=== PATIENT | female | born 1990 | race Caucasian/White ===

== ENCOUNTER 2021-06-30 06:10 | Inpatient (IN) | payer OTHER ==
[2021-06-30] MEDS ORDERED: CARBOPROST TROMETHAMINE 250 MCG/ML 1 ML AMP IM PRN (06:22)
[2021-06-30] MEDS ORDERED: LIDOCAINE 0.5% (PF) 5 MG/ML (50 ML SDV) SQ PRN (06:22)
[2021-06-30] MEDS ORDERED: OXYTOCIN 10 UNIT/ML 1 ML VIAL IM PRN (06:22)
[2021-06-30] MEDS ORDERED: TERBUTALINE 1 MG/ML VIAL SQ PRN (06:22)
[2021-06-30] MEDS ORDERED: METHYLERGONOVINE 0.2 MG/ML 1 ML AMP IM PRN (06:22)
[2021-06-30] MEDS ORDERED: OXYTOCIN 30 UNITS/500 ML NS 30 UNIT in SALINE 1 500ML.BAG IV SCH ×2 (06:30→15:15)
[2021-06-30] MEDS: LACTATED RINGERS 1,000 ML IV SCH (06:34)
[2021-06-30 06:54] LABS: Basophils % (A) 0 %; Eosinophils # (A) 0.3 k/uL (0-0.7); Eosinophils % (A) 2 %; HCT 32.5 % (34.0-46.0); HGB 10.7 gm/dL (11.4-16.0); Lymphocytes # (A) 1.3 k/uL (1.0-4.8); Lymphocytes % (A) 11 %; MCH 30.5 pg (25.0-35.0); MCV 92.3 fL (80.0-100.0); Mean Platelet Volume 8.9; Monocytes # (A) 0.5 k/uL (0-1.0); Monocytes % (A) 4 %; Neutrophils # (A) 9.4 k/uL (1.3-7.7); Neutrophils % (A) 81 %; Platelet Count 298 k/uL (150-450); RBC 3.52 m/uL (3.80-5.40); RDW 13.4 % (11.5-15.5); WBC 11.6 k/uL (3.8-10.6)
--- NOTE | 2021-06-30 08:20 | P.HPOB ---
History of Present Illness H&P Date: 06/30/21 Chief Complaint: Cholestasis of This is a 31 year old 1 para 0 woman with an estimated due date of 07/18/2021 based on first trimester ultrasound. She is admitted at 37-3/7 weeks gestation after diagnosis of cholestasis of . She began having itching of the palms and soles of the feet proximally 6 days ago. Fasting bile acids were drawn and resulted yesterday. They were elevated at 44. She also has progressively been developing lower extremity edema and had 1+ protein in her urine. Her blood pressures have remained normal. Based on the diagnosis of placed is and worsening lower extremity edema and mild proteinuria, the decision was made for induction of labor. has been otherwise uncomplicated. She had an estimated weight in the 94th percentile at a 32 week ultrasound. Laboratory data: Blood type A+, antibody screen negative, rubella immune, VDRL nonreactive, hep Veronica surface antigen negative, HIV negative, gonorrhea and clinic cultures negative, group B strep negative Review of Systems All systems: negative Past Medical History Past Medical History: No Reported History History of Any Multi-Drug Resistant Organisms: None Reported Past Surgical History: No Surgical Hx Reported Past Anesthesia/Blood Transfusion Reactions: No Reported Reaction Past Psychological History: No Psychological Hx Reported Smoking Status: Never smoker Past Drug Use History: None Reported Medications and Allergies Home Medications Medication Instructions Recorded Confirmed Type Pnv No.95/Ferrous Fum/Folic AC 1 tab PO DAILY 06/30/21 06/30/21 History [ Multivitamin Tablet] Allergies Allergy/AdvReac Type Severity Reaction Status Date / Time No Known Allergies Allergy Verified 06/30/21 06:21 Exam Vital Signs Temp Pulse Resp BP Pulse Ox 06/30/21 06:21 98.1 F 144 H 18 158/80 100 Intake and Output 06/29/21 06/30/21 06/30/21 22:59 06:59 14:59 Other: Weight 77.111 kg This is a pleasant, visibly gravid female in no acute distress. Targeted physical exam is performed. The abdomen is gravid with a fundal height of 37-38 cm. Estimated weight 7-8 pounds. She has 2+ bilateral lower extremity edema, 2+ deep tendon reflexes and no clonus. On cervical exam the cervix is 3-4 cm dilated, 70% effaced and the vertex is in the -2 station. Artificial rupture of membranes is undertaken and clear fluid is noted. heart tones are category 1 and she is irregularly ed Results Result Diagrams: 06/30/21 06:30 Abnormal Lab Results - Last 24 Hours (Table) 06/30/21 Range/Units 06:30 WBC 11.6 H (3.8-10.6) k/uL RBC 3.52 L (3.80-5.40) m/uL Hgb 10.7 L (11.4-16.0) gm/dL Hct 32.5 L (34.0-46.0) % Neutrophils # 9.4 H (1.3-7.7) k/uL Assessment and Plan (1) Cholestasis of Current Visit: Yes Status: Acute Code(s): O26.619 - LIVER AND BILIARY TRACT DISORD IN , UNSP TRIMESTER; K83.1 - OBSTRUCTION OF BILE DUCT SNOMED C ode(s): 623986146 (2) Edema of lower extremity in third trimester, antepartum Current Visit: Yes Status: Acute Code(s): O12.03 - GESTATIONAL EDEMA, THIRD TRIMESTER SNOMED Code(s): 180086729 Plan: 31-year-old 1 at 37-3/7 weeks gestation admitted for induction of labor secondary to cholestasis of and worsening lower extremity edema. status is currently reassuring by external monitoring. Pitocin induction of labor has been initiated per protocol. She is group B strep negative and Rh+. I anticipate normal spontaneous vaginal delivery.
[2021-06-30] MEDS ORDERED: ROPIVACAINE 100 MG, fentaNYL (PF). 200 MCG in SODIUM CHLORIDE 0.9% 76 ML EPIDURAL ONE (14:02)
--- NOTE | 2021-06-30 15:05 | P.PROBDLV ---
Vaginal Delivery Note - . Vaginal Delivery Note: findings: Male infant in the left occiput anterior position with Apgars of 9 at 1 minute and 9 at 5 minutes weighing 6 lbs. 8 oz., 2950 g. Second-degree perineal laceration. Intact, three-vessel cord placenta. EBL approximately 250 mL's. Delivery summary: This is a 30-year-old 1 para 0 woman who is admitted at 37-3/7 weeks gestation for induction of labor secondary to recent diagnosis of cholestasis of as well as increased lower extremity swelling and mild proteinuria in the office setting. Following admission she underwent a Pitocin induction of labor with artificial rupture of membranes. Clear fluid was noted. She progressed steadily on and without complications to the first stage of labor. She did receive an epidural anesthetic at approximate 7 cm dilated. She reached complete cervical dilation with category 1 heart tones. She commenced pushing with excellent maternal effort. With she was repositioned, prepped and draped in the dorsal modified Fabio position. With additional maternal effort the head did deliver from the left occiput anterior position. The nose and mouth were bulb suctioned. An uncontrolled fashion the anterior followed by the posterior shoulders were delivered and the rest the infant was delivered onto the field. The nose and mouth were further bulb suctioned and replace the infant was placed on the maternal abdomen. After delay the cord was clamped and cut. The perineum was infused with lidocaine and further inspected. Second-degree laceration was confirmed. This was closed with 3-0 Vicryl suture in the usual fashion. The placenta was then expressed after approximately 10 minute third stage of labor. The uterus was massaged and was noted to be firm below the level of the umbilicus. The bladder was drained for approximately 100 mL of clear urine. The vagina and cervix are reinspected and no further bleeding or lacerations were noted. All counts were correct. Patient received Pitocin following the third stage of labor. Both mother and were doing well post delivery in the room.
[2021-06-30] MEDS ORDERED: SIMETHICONE 80 MG CHEWABLE PO PRN (15:06)
[2021-06-30] MEDS ORDERED: IBUPROFEN 600 MG TAB PO PRN (15:06)
[2021-06-30] MEDS ORDERED: diphenhydrAMINE 50 MG CAP PO PRN (15:06)
[2021-06-30] MEDS ORDERED: ACETAMINOPHEN TAB 325 MG TAB PO PRN (15:06)
[2021-06-30] MEDS ORDERED: LANOLIN CREAM 5 GM TUBE TOPICAL PRN (15:06)
[2021-06-30] MEDS ORDERED: diphenhydrAMINE 25 MG CAP PO PRN (15:06)
[2021-06-30] MEDS ORDERED: BENZOCAINE/MENTHOL SPRAY 1 GM/SPRAY AEROSOL TOPICAL PRN (15:06)
[2021-06-30] MEDS ORDERED: HYDROCORTISONE 2.5% RECTAL CREAM 30 GM TUBE RECTAL PRN (15:06)
[2021-06-30] MEDS ORDERED: diphenhydrAMINE 50 MG/ML 1 ML VIAL IVP PRN ×2 (15:06)
[2021-06-30] MEDS ORDERED: ZOLPIDEM 5 MG TAB PO PRN (15:06)
[2021-06-30] MEDS: SENNOSIDES-DOCUSATE SODIUM 1 EACH TAB PO SCH (19:50)
[2021-07-01] MEDS: LACTATED RINGERS 1,000 ML IV SCH (07:18)
[2021-07-01] MEDS: SENNOSIDES-DOCUSATE SODIUM 1 EACH TAB PO SCH (07:25)
[2021-07-01 07:32] LABS: Basophils # (A) 0.1 k/uL (0-0.2); Basophils % (A) 0 %; Eosinophils % (A) 0 %; HCT 28.7 % (34.0-46.0); HGB 9.6 gm/dL (11.4-16.0); Lymphocytes # (A) 1.7 k/uL (1.0-4.8); Lymphocytes % (A) 9 %; MCH 30.8 pg (25.0-35.0); MCHC 33.4 g/dL (31.0-37.0); MCV 92.2 fL (80.0-100.0); Mean Platelet Volume 8.8; Monocytes # (A) 0.7 k/uL (0-1.0); Monocytes % (A) 4 %; Neutrophils # (A) 15.9 k/uL (1.3-7.7); Neutrophils % (A) 86 %; Platelet Count 265 k/uL (150-450); RBC 3.11 m/uL (3.80-5.40); RDW 13.4 % (11.5-15.5); WBC 18.6 k/uL (3.8-10.6)
[2021-07-01 07:48] VITALS: BP 121/82; PULSE 88; RESP 18; TEMP 98.3
--- NOTE | 2021-07-01 10:03 | P.DS ---
Providers Date of admission: 06/30/21 06:10 Expected date of discharge: 07/01/21 Attending physician: Tracey Matias Primary care physician: Stated None - Discharge Diagnosis(es) (1) Cholestasis of Current Visit: Yes Status: Acute (2) Edema of lower extremity in third trimester, antepartum Current Visit: Yes Status: Acute (3) Normal spontaneous vaginal delivery Current Visit: Yes Status: Acute (4) Perineal laceration with delivery, second degree Current Visit: Yes Status: Acute Hospital Course: this is a 31-year-old 1 now para 1 woman who is admitted at 37-3/7 weeks gestation for induction of labor secondary to diagnosis of cholestasis of . She also developed some worsening lower extremity edema and mild proteinuria. Her blood pressures were normal. Following admission she underwent a Pitocin induction of labor with artificial rupture of membranes. She entered active labor and did receive an epidural anesthetic. She had a rather rapid and unremarkable first stage of labor with category 1 heart tones. She went on to deliver a liveborn male infant over second-degree perineal laceration Apgars were 9 at 1 minute and 9 at 5 minutes and weight was 6 lbs. 8 oz. Please see the delivery summary for details. The patient's course was unremarkable. By the morning of day #1 she was ambulating and voiding without difficulty. Her lochia was moderate. She was breast-feeding successfully. The was circumcised. Her vital signs are stable. She was therefore deemed stable for discharge home at 24 hours postdelivery with routine instructions for care and follow-up. Procedures: epidural anesthetic Normal spontaneous vaginal delivery Repair of second-degree perineal laceration Patient Condition at Discharge: Good Plan - Discharge Summary New Discharge Prescriptions: No Action Pnv No.95/Ferrous Fum/Folic AC [ Multivitamin Tablet] 1 tab PO DAILY Discharge Medication List Pnv No.95/Ferrous Fum/Folic AC [ Multivitamin Tablet] 1 tab PO DAILY 06/30/21 [History] Follow up Appointment(s)/Referral(s): Tracey Matias MD [STAFF PHYSICIAN] - 6 Weeks Activity/Diet/Wound Care/Special Instructions: Follow-up in the office in 6 weeks . Call with any concerning signs or symptoms including heavy vaginal bleeding, severe abdominal pain, fever greater than 101, swelling or redness of the lower extremities, foul vaginal discharge, or signs of depression. Nothing in the vagina for 6 weeks after delivery, specifically no intercourse.May use [id number] ibuprofen and/or Tylenol extra strength as needed for pain. Discharge Disposition: HOME SELF-CARE
== END 2021-07-01 17:46 | disposition home or self-care (01) | DRG 805 ==
LOC: 4FBP 06:10
PROVIDERS: ADMIT Obstetrics & Gynecology; ATTEND Obstetrics & Gynecology
PROC: 10E0XZZ Delivery of Products of Conception, External Approach (ICD-10-PCS; principal; 2021-06-30)
PROC: 0KQM0ZZ Repair Perineum Muscle, Open Approach (ICD-10-PCS; 2021-06-30)
PROC: 10907ZC Drainage of Amniotic Fluid, Therapeutic from Products of Conception, Via Natural or Artificial Opening (ICD-10-PCS; 2021-06-30)
PROC: 3E033VJ Introduction of Other Hormone into Peripheral Vein, Percutaneous Approach (ICD-10-PCS; 2021-06-30)
PROC: 4A0HX4Z Measurement of Products of Conception, Cardiac Electrical Activity, External Approach (ICD-10-PCS; 2021-06-30)
DX: O26.62 Liver and biliary tract disorders in childbirth (principal); K83.1 Obstruction of bile duct; Z37.0 Single live birth; O70.1 Second degree perineal laceration during delivery; O12.14 Gestational proteinuria, complicating childbirth; Z3A.37 37 weeks gestation of pregnancy
CPT/HCPCS: 85025; 86850; 86900; 86901

== ENCOUNTER → 2022-12-13 | Outpatient (CLI) | payer OTHER ==
[2022-12-14 01:21] LABS: Basophils # (A) 0.03 X 10*3/uL (0.00-0.10); Basophils % (A) 0.4 %; Eosinophils # (A) 0.02 X 10*3/uL (0.04-0.35); Eosinophils % (A) 0.2 %; HCT 36.1 % (37.2-46.3); HGB 12.4 g/dL (12.0-15.0); Immature Grans, Automated 0.1 %; Lymphocytes # (A) 1.48 X 10*3/uL (0.90-5.00); Lymphocytes % (A) 17.9 %; MCH 31.8 pg (27.0-32.0); MCHC 34.3 g/dL (32.0-37.0); MCV 92.6 fL (80.0-97.0); Mean Platelet Volume 11.4 fL (9.5-12.2); Monocytes # (A) 0.48 X 10*3/uL (0.20-1.00); Monocytes % (A) 5.8 %; NRBC Per 100 WBC 0 /100 WBCS (0.0-0.0); Neutrophils # (A) 6.25 X 10*3/uL (1.80-7.70); Neutrophils % (A) 75.6 %; Platelet Count 247 X 10*3/uL (140-440); RDW 12.3 % (11.5-14.5); WBC 8.27 X 10*3/uL (4.50-10.00)
== END | disposition home or self-care (01) ==
LOC: LABPAT 13:40
PROVIDERS: ATTEND Obstetrics & Gynecology
DX: Z01.812 Encounter for preprocedural laboratory examination (principal); O02.1 Missed abortion; Z3A.00 Weeks of gestation of pregnancy not specified
CPT/HCPCS: 85025

== ENCOUNTER 2022-12-15 06:22 | Day surgery (SDC) | payer OTHER ==
[2022-12-13 16:00] VITALS: BMI 22.3
[~2022-12-15 06:22] MED LIST: DEXAMETHASONE SOD PHOSPHATE 4 MG/ML 1 ML VIAL IV ONE; LACTATED RINGERS 1,000 ML IV SCH; MIDAZOLAM 2 MG/2 ML VIAL IV PRN; ONDANSETRON 4 MG/2 ML VIAL IVP ONE; Pre Op ABX Message 1 EACH MISC MISCELLANE ONE; SCOPOLAMINE 1 MG/72 HR PATCH TRANSDERM ONE
[2022-12-15] MEDS ORDERED: HYDROmorphone 0.5 MG/0.5 ML SYRINGE IVP PRN (07:00)
[2022-12-15] MEDS ORDERED: fentaNYL (PF) 50 MCG/ML 2 ML AMP ONE (07:25)
[2022-12-15] MEDS ORDERED: LIDOCAINE 2% INJ 20 MG/ML (2 ML VIAL) ONE (07:25)
[2022-12-15] MEDS ORDERED: MIDAZOLAM 2 MG/2 ML VIAL ONE (07:25)
[2022-12-15] MEDS ORDERED: PROPOFOL 10 MG/ML 20 ML VIAL IV ONE (07:25)
[2022-12-15] MEDS ORDERED: KETOROLAC 15 MG/ML 1 ML VIAL ONE (07:25)
[2022-12-15] MEDS ORDERED: LIDOCAINE 0.5%-EPI 1:200,000 50 ML VIAL SQ ONE (07:30)
[2022-12-15 08:15] VITALS: TEMP 97
--- NOTE | 2022-12-15 08:15 | P.OP ---
Date of Procedure: 12/15/22 Preoperative Diagnosis: Missed Postoperative Diagnosis: Same Procedure(s) Performed: Suction dilation and curettage Anesthesia: JOSESITO Surgeon: Tracey Matias Estimated Blood Loss (ml): 100 IV fluids (ml): 300 Urine output (ml): 25 Pathology: other (Products of conception) Condition: stable Disposition: PACU Indications for Procedure: 32-year-old 2 para 1 at approximately 10 weeks' gestation by LMP who is found to have a 9 week gestational sac and pole with no heart tones on ultrasound Operative Findings: N to 12 weeks size uterus preprocedure with appropriate products of conception retrieved Description of Procedure: After the patient and her partner were met in the preoperative holding area and all questions were answered, she was taken to the operating room where anesthetic was administered without incident. She was in positioned, prepped and draped in the dorsal high lithotomy position. Exam under anesthetic was undertaken. The bladder was drained for approximately 25 mL of clear urine. The weighted speculum was placed in the vagina and a single-toothed tach tenaculum was used to grasp the cervix anteriorly. A paracervical block with half percent lidocaine plus epinephrine was placed. The uterus was sounded to 14 cm. The cervix and sequentially dilated with Hegar dilators to 12-Paraguayan. The 10-Paraguayan curved suction curette was then introduced and the uterine cavity was circumferentially suction curettaged with appropriate amount of tissue obtained. Additional curettage was undertaken with sharp banjo curet for a dditional tissue of which there was minimal. A final pass with the suction curette was undertaken. Instruments were then removed and bimanual examination was performed. The uterus was felt to be firm and approximately 8 weeks' size. Speculum was placed back into the vagina and the cervix was observed. No active bleeding was noted after approximately 90 seconds. Instruments were therefore removed and the patient was awoken from anesthetic without incident. She was transported to the recovery room. The patient's blood type is A+. All counts reported to me as correct by the operating room staff.
[2022-12-15] MEDS ORDERED: LACTATED RINGERS 1,000 ML IV ONE (08:57)
[2022-12-15 09:26] VITALS: BP 106/71; PULSE 82; RESP 15
== END 2022-12-15 09:55 | disposition home or self-care (01) ==
LOC: OR 06:22
PROVIDERS: ATTEND Obstetrics & Gynecology
DX: O02.1 Missed abortion (principal)
CPT/HCPCS: 59820; 86900; 86901; 88305; 86850; J2250; J1100; J2405; J3010; J1885; J2704; J2001